=== PATIENT | female | born 1985 | race Caucasian/White ===

== ENCOUNTER → 2017-02-28 | Outpatient (CLI) | payer OTHER ==
[~2017-02-28] MED LIST: LEVO25TA PO; MTR600X PO; OXYC5TAB PO; PANT40TA PO; PRENTAB26 PO
== END | disposition home or self-care (01) ==
LOC: C.LABPVFM 11:20
PROVIDERS: ATTEND Obstetrics & Gynecology
DX: Z32.00 Encounter for pregnancy test, result unknown (principal)

== ENCOUNTER → 2017-03-14 | Outpatient (CLI) | payer OTHER ==
[~2017-03-14] MED LIST changes: +RANI1TAB75 PO
[2017-03-14 14:56] LABS: URINE APPEARANCE CLEAR (CLEAR); URINE BILIRUBIN NEG (NEG); URINE COLOR YELLOW; URINE NITRITE NEG (NEG); URINE PH 5.5 (4.5-7.5); URINE SPECIFIC GRAVITY 1.007 (1.000-1.030); UROBILINOGEN NEG (NEG)
[2017-03-14 15:07] LABS: MANUAL MICROSCOPIC REQUIRED? NO; REVIEW REQ? NO
== END | disposition home or self-care (01) ==
LOC: C.LABSPEC 13:48
PROVIDERS: ATTEND Obstetrics & Gynecology
DX: O09.299 Supervision of pregnancy with other poor reproductive or obstetric history, unspecified trimester (principal)

== ENCOUNTER → 2017-03-26 | Outpatient (CLI) | payer OTHER | END | disposition home or self-care (01) | LOC: C.PAPS 10:08 | PROVIDERS: ATTEND Obstetrics & Gynecology | DX: O10.919 Unspecified pre-existing hypertension complicating pregnancy, unspecified trimester (principal); Z3A.00 Weeks of gestation of pregnancy not specified ==

== ENCOUNTER → 2017-03-26 | Outpatient (CLI) | payer OTHER ==
[2017-03-29 00:57] LABS: CHLAMYDIA TRACH RNA*** NOT DETECTED (NOT DETECTED); GC (NEIS GONORRHOEAE)RNA** NOT DETECTED (NOT DETECTED)
== END | disposition home or self-care (01) ==
LOC: C.LABSPEC 17:29
PROVIDERS: ATTEND Obstetrics & Gynecology
DX: O09.299 Supervision of pregnancy with other poor reproductive or obstetric history, unspecified trimester (principal); Z3A.00 Weeks of gestation of pregnancy not specified

== ENCOUNTER → 2017-03-31 | Outpatient (CLI) | payer OTHER ==
[2017-03-31 08:41] LABS: PATIENT HEIGHT 157.5 cm
[2017-03-31 12:39] LABS: BASO % 0.3 %; BASO ABS # 0.02 K/uL (0-0.2); COMPLETE YES; EOS % 0.6 %; HEMATOCRIT 39.1 % (37-47); IG% 0.4 %; LYMPH % 32.1 %; LYMPH ABS # 2.27 K/uL (1.2-3.4); MEAN CELL VOLUME 87.3 fL (80-100); MEAN CORPUSCULAR HEMOGLOBIN 29.9 pg (25-34); MEAN CORPUSCULAR HGB CONC 34.3 g/dl (32-36); MEAN PLATELET VOLUME 11.5 fL (7.4-10.4); MONO % 5.2 %; NEUT % 61.4 %; PLATELET COUNT 228 K/uL (130-400); RED BLOOD COUNT 4.48 M/uL (4.2-5.4); WHITE BLOOD COUNT 7.07 K/uL (4.8-10.8)
[2017-03-31 13:01] LABS: URINE TOTAL PROTEIN 7.5 mg/dl (0-11.9)
[2017-03-31 13:54] LABS: ALKALINE PHOSPHATASE 46 U/L (45-117); ALT/SGPT 29 U/L (12-78); AST/SGOT 19 U/L (15-37)
[2017-03-31 14:15] LABS: CREATININE 0.55 mg/dl (0.6-1.2)
== END | disposition home or self-care (01) ==
LOC: C.LABPVFM 08:11
PROVIDERS: ATTEND Obstetrics & Gynecology
DX: O10.919 Unspecified pre-existing hypertension complicating pregnancy, unspecified trimester (principal); O09.299 Supervision of pregnancy with other poor reproductive or obstetric history, unspecified trimester; Z3A.00 Weeks of gestation of pregnancy not specified

== ENCOUNTER → 2017-05-14 | Outpatient (CLI) | payer OTHER ==
[~2017-05-14] MED LIST changes: -RANI1TAB75 PO
[2017-05-14 14:54] LABS: GTGD 50 Grams
== END | disposition home or self-care (01) ==
LOC: C.LABPVFM 07:46
PROVIDERS: ATTEND Obstetrics & Gynecology
DX: O09.92 Supervision of high risk pregnancy, unspecified, second trimester (principal); Z3A.00 Weeks of gestation of pregnancy not specified

== ENCOUNTER → 2017-06-19 | Outpatient (CLI) | payer OTHER ==
[2017-06-19 17:50] LABS: BASO % 0.2 %; BASO ABS # 0.02 K/uL (0-0.2); COMPLETE YES; EOS % 1.3 %; HEMATOCRIT 37.4 % (37-47); IG% 0.8 %; LYMPH % 24.4 %; LYMPH ABS # 2.25 K/uL (1.2-3.4); MEAN CELL VOLUME 89.9 fL (80-100); MEAN CORPUSCULAR HEMOGLOBIN 30.3 pg (25-34); MEAN CORPUSCULAR HGB CONC 33.7 g/dl (32-36); MONO % 7.2 %; NEUT % 66.1 %; PLATELET COUNT 237 K/uL (130-400); RED BLOOD COUNT 4.16 M/uL (4.2-5.4); WHITE BLOOD COUNT 9.21 K/uL (4.8-10.8)
[2017-06-19 18:28] LABS: THYROID STIMULATING HORMONE 1.14 uIu/ml (0.300-4.500)
== END | disposition home or self-care (01) ==
LOC: C.LABPVFM 16:13
PROVIDERS: ATTEND Nurse Practitioner Family
DX: F41.9 Anxiety disorder, unspecified (principal); R53.83 Other fatigue

== ENCOUNTER → 2017-08-08 | Outpatient (CLI) | payer OTHER ==
[2017-08-08 13:01] LABS: HEMATOCRIT 37.6 % (37-47)
[2017-08-08 13:23] LABS: GTGD 50 Grams
[2017-08-08 19:11] LABS: URINE APPEARANCE CLEAR (CLEAR); URINE BILIRUBIN NEG (NEG); URINE COLOR YELLOW; URINE NITRITE NEG (NEG); URINE PH 6.5 (4.5-7.5); URINE SPECIFIC GRAVITY 1.016 (1.000-1.030); UROBILINOGEN NEG (NEG)
[2017-08-08 19:22] LABS: MANUAL MICROSCOPIC REQUIRED? NO; REVIEW REQ? NO
== END | disposition home or self-care (01) ==
LOC: C.LABPVFM 08:01
PROVIDERS: ATTEND Obstetrics & Gynecology
DX: O09.93 Supervision of high risk pregnancy, unspecified, third trimester (principal); Z3A.00 Weeks of gestation of pregnancy not specified

== ENCOUNTER → 2017-10-03 | Outpatient (CLI) | payer OTHER | END | disposition home or self-care (01) | LOC: C.LABSPEC 10:53 | PROVIDERS: ATTEND Obstetrics & Gynecology | DX: O09.93 Supervision of high risk pregnancy, unspecified, third trimester (principal) ==

== ENCOUNTER 2017-10-24 05:42 | Inpatient (IN) | payer OTHER ==
[2017-10-23 15:17] VITALS: BMI 33.0
--- NOTE | 2017-10-23 15:37 | PAT Medication Instructions ---
Service Date Oct 23, 2017. Current Home Medication List Ibuprofen (Ibuprofen), 600 MG PO Q4H PRN for Pain, CASTANO, Cramping, or Fever Multivit/Min/Iron/Fol Ac/Pren ( Vitamin), 1 TAB PO QAM Ranitidine HCl (Ranitidine 75), 1 TAB PO DAILY PRN for Heartburn Medication Instructions For Your Scheduled Surgery - Hold the following medications the morning of surgery: Multivit/Min/Iron/Fol Ac/Pren ( Vitamin), 1 TAB PO QAM Ibuprofen (Ibuprofen), 600 MG PO Q4H PRN for Pain, CASTANO, Cramping, or Fever - Take the following medications the morning of surgery with a sip of water OTHERWISE NOTHING TO EAT OR DRINK AFTER MIDNIGHT: Ranitidine HCl (Ranitidine 75), 1 TAB PO DAILY PRN for Heartburn If you have any questions please call us at [phone] or [phone] or [phone]
[2017-10-23 15:46] LABS: BASO % 0.3 %; BASO ABS # 0.03 K/uL (0-0.2); COMPLETE YES; EOS % 0.8 %; HEMATOCRIT 36.5 % (37-47); IG% 1.3 %; LYMPH % 26.6 %; LYMPH ABS # 2.42 K/uL (1.2-3.4); MEAN CELL VOLUME 85.3 fL (80-100); MEAN CORPUSCULAR HEMOGLOBIN 28.5 pg (25-34); MEAN CORPUSCULAR HGB CONC 33.4 g/dl (32-36); MEAN PLATELET VOLUME 11.1 fL (7.4-10.4); MONO % 6.1 %; NEUT % 64.9 %; PLATELET COUNT 235 K/uL (130-400); RED BLOOD COUNT 4.28 M/uL (4.2-5.4); WHITE BLOOD COUNT 9.11 K/uL (4.8-10.8)
--- NOTE | 2017-10-23 18:23 | HISTORY & PHYSICAL EXAMINATION ---
DATE OF ADMISSION: 10/24/2017 PRINCIPAL DIAGNOSES: Intrauterine at 39 weeks, prior section, requesting repeat section and history of chronic hypertension during . PRINCIPAL PROCEDURE: Repeat low transverse cervical section. HISTORY OF PRESENT ILLNESS: The patient is a 32-year-old 3, para 1-0-1-1 white female, EDC of 10/31/2017, who presents for repeat section. First section was done in 2016 because of arrest of descent for delivery of a 7 pound 5 ounce . The patient is requesting repeat section at this time. She understands the risks of procedure and is willing to proceed. The was complicated by history of chronic hypertension, for which she has received no medication during this . PAST MEDICAL HISTORY: Migraine headaches; anxiety and depression, not taking any medications; and hypothyroidism. PAST SURGICAL HISTORY: [place] teeth removed, labiaplasty surgery to release the labial fusion and section in a 2016. ALLERGIES: She has no known drug allergies. MEDICATIONS: vitamins and Zantac as needed for acid reflux, 75 mg dose. OBSTETRICAL AND GYNECOLOGICAL HISTORY: Periods are every 27 days. She has a history of Clomid and Femara prior for infertility and intrauterine inseminations. No history of PID, VD or herpes. Pap smears have been within normal limits. In 2012, she had a spontaneous miscarriage. In 2016, delivery at 38 and 6/7 weeks for arrest of descent by section with delivery of a viable female, 7 pounds 5 ounces. HISTORY: Blood type is O positive. Antibody screen is negative. Rubella is immune. RPR is nonreactive. Urine cultures have been negative. Hepatitis antigen is negative. HIV negative. Chlamydia, GC and cystic fibrosis are all negative. Cell-free DNA was declined. Quad screen was also declined. Glucolas have been within normal limits. Hemoglobin at 28 weeks is 12.5 and hematocrit 37.6. GBS is negative. Nonstress tests have been reactive, done for chronic hypertension. Ultrasounds for growth show estimated weight is within normal limits as is the amniotic fluid. SOCIAL HISTORY: She does not smoke or drink. FAMILY HISTORY: Noncontributory. PHYSICAL EXAMINATION: VITAL SIGNS: Blood pressure is 118/88. GENERAL: She is a well-nourished and well-developed female in no apparent distress. LUNGS: Clear to auscultation. HEART: Regular rate and rhythm. No murmurs or gallops. ABDOMEN: Gravid consistent with a term in size. Estimated fundal height is 37 cm. Estimated weight 7-8 pounds. There is no hepatosplenomegaly or masses palpable. Uterus is nontender. She has a well-healed low transverse skin incision on her abdomen. PELVIC: Deferred. EXTREMITIES: Without calf tenderness or edema. ASSESSMENT: A 32-year-old who presents at 39 weeks gestation for repeat section. She understands the risks of procedure and is willing to proceed. Please see the orders for further directions.
[~2017-10-24] VITALS: Ht 156.2 cm; Wt 84.1 kg
[2017-10-24] VITALS (15 sets, daily range): BP systolic 106–124; BP diastolic 63–78; PULSE 76–105; TEMP 36.4–36.9; O2SAT 91–100; Ht 156.2 cm; Wt 84.1 kg
[~2017-10-24 05:42] MED LIST changes: -LEVO25TA PO; -OXYC5TAB PO; -PANT40TA PO; +RANI1TAB75 PO
[2017-10-24] MEDS ORDERED: LACTATED RINGER'S 1000ML 1,000 ML IV ONE (06:07)
[2017-10-24] MEDS ORDERED: CITRIC ACID/SODIUM CITRATE 15 ML UDC PO STA (06:27)
[2017-10-24] MEDS ORDERED: CEFAZOLIN IV 2,000 MG in SYRINGE 0 ML IV STA (06:27)
[2017-10-24 06:52] LABS: BASO % 0.3 %; BASO ABS # 0.02 K/uL (0-0.2); HEMATOCRIT 35.1 % (37-47); IG% 1.6 %; LYMPH % 26.6 %; LYMPH ABS # 2.11 K/uL (1.2-3.4); MEAN CELL VOLUME 85.8 fL (80-100); MEAN CORPUSCULAR HEMOGLOBIN 27.6 pg (25-34); MONO % 7.1 %; NEUT % 63.4 %; PLATELET COUNT 216 K/uL (130-400); RED BLOOD COUNT 4.09 M/uL (4.2-5.4); WHITE BLOOD COUNT 7.93 K/uL (4.8-10.8)
[2017-10-24 06:55] LABS: COMPLETE YES; MEAN CORPUSCULAR HGB CONC 32.2 g/dl (32-36)
[2017-10-24] MEDS ORDERED: FENTANYL CITRATE INJ 50 MCG/1 ML 2 ML VIAL ONE (07:27)
[2017-10-24] MEDS ORDERED: MORPHINE SULFATE 1MG/1ML 30ML VIAL IV ONE (07:28)
[2017-10-24] MEDS ORDERED: LACTATED RINGER'S 1000ML 1,000 ML IV SCH (07:30)
[2017-10-24] MEDS ORDERED: PHENYLEPHRINE 100MCG/ML 5ML SYR ONE (08:37)
[2017-10-24] MEDS ORDERED: OXYTOCIN INJ 10 UNITS/ML VIAL ONE (08:37)
[2017-10-24] MEDS ORDERED: KETOROLAC TROMETHAMINE 30 MG/ML VIAL ONE (08:37)
[2017-10-24] MEDS ORDERED: ONDANSETRON INJ 2 MG/ML 2 ML VIAL ONE (08:37)
[2017-10-24] MEDS ORDERED: MAGNESIUM HYDROXIDE SUSP 30 ML UDC PO PRN (08:45)
[2017-10-24] MEDS ORDERED: LANOLIN OINT EXT PRN ×2 (08:45)
[2017-10-24] MEDS ORDERED: SENNA 8.6 MG TAB PO PRN (08:45)
--- NOTE | 2017-10-24 08:45 | [facility] Post Operative Brief Note ---
Immediate Operative Summary Operative Date Oct 24, 2017. Pre-Operative Diagnosis Repeat caesarean section x1. Patient desires repeat caesarean section. Post-Operative Diagnosis Same as pre-op. Procedure(s) Performed Live male infant at 0800. Surgeon Dr. Pace [place] Man Surgeon(s) Dr. Rodriguez Estimated Blood Loss 600 mL Findings DELIVERED VIABLE MALE INFANT APGARS 7, 9 WEIGHT 7#9 OZS. NORMAL UTERUS WITH SIGNIFICANT ADHESIONS TO ANTERIOR ABDOMINAL WALL, NORMAL FALLOPIAN TUBES AND OVARIES BILATERALLY. Specimens 1. Placenta 2. Cord Blood Drains WILKINS STRAIGHT TO DRAINAGE, CLEAR AT END OF CASE Anesthesia SPINAL Complication(s) None Disposition Recovery Room / PACU
[2017-10-24] MEDS ORDERED: SODIUM CHLORIDE 0.9% 1000ML 1,000 ML IV PRN (08:57)
[2017-10-24] MEDS ORDERED: LACTATED RINGER'S 1000ML 500 ML IV PRN (08:57)
[2017-10-24] MEDS ORDERED: NALOXONE HCL INJ 1 MG in SODIUM CHLORIDE 0.9% 1000ML 1,000 ML IV PRN (08:57)
[2017-10-24] MEDS ORDERED: NALOXONE HCL INJ 0.08 MG in SYRINGE 1.8 ML IV PRN (08:57)
[2017-10-24] MEDS ORDERED: NALBUPHINE HCL INJ 10 MG/ML AMP IV PRN (09:00)
[2017-10-24] MEDS ORDERED: MoRPHine SULFATE PF 1 MG/ML 10 ML AMP/VIAL EPI PRN (09:00)
[2017-10-24] MEDS ORDERED: NALOXONE HCL 0.4 MG/1 ML VIAL/CARP IV PRN (09:00)
[2017-10-24] MEDS ORDERED: OXYTOCIN INJ 20 UNITS in LACTATED RINGER'S 1000ML 1,000 ML IV SCH (09:00)
[2017-10-24] MEDS ORDERED: DiphenhydrAMINE HCL 50 MG/ML VIAL IV PRN ×2 (09:00)
[2017-10-24] MEDS ORDERED: NO NARCOTICS OR SEDATIVES SCH (09:00)
[2017-10-24] MEDS ORDERED: MEPERIDINE HCL 25 MG/ML CARP IV PRN (09:00)
[2017-10-24] MEDS ORDERED: MoRPHine SULFATE 2 MG/ML CARP IV PRN (09:00)
[2017-10-24] MEDS ORDERED: PROMETHAZINE HCL INJ 6.25 MG in SODIUM CHLORIDE 0.9% 50ML 50 ML IV PRN (09:00)
[2017-10-24] MEDS ORDERED: ONDANSETRON INJ 2 MG/ML 2 ML VIAL IV PRN (09:00)
[2017-10-24] MEDS ORDERED: EpHEDrine SULFATE INJ 50 MG/ML AMP IV PRN (09:00)
--- NOTE | 2017-10-24 09:31 | History & Physical Bridge Note ---
H&P Re-Evaluation Bridge Note: I have examined the patient, reviewed the History & Physical and in the interval since the performance of the History & Physical I have noted the following changes of clinical significance: No changes noted
--- NOTE | 2017-10-24 10:00 | OPERATIVE REPORT ---
DATE OF OPERATION: 10/24/2017 SURGEON: Iqra Pace MD. RIGGING SUPERVISOR: Dr. Candice Rodriguez, PGY1. PREOPERATIVE DIAGNOSIS: Intrauterine at 39 weeks, prior section. POSTOPERATIVE DIAGNOSIS: Same plus delivery of a viable male infant, 7 pounds 9 ounces. PROCEDURE: Repeat low transverse cervical section and lysis of adhesions. ESTIMATED BLOOD LOSS: 600 mL. ANESTHESIA: Subarachnoid block. HISTORY: The patient is a 32-year-old 2, para 1-0-1-1 white female who presents at 39 weeks for repeat section. Prior section was done because of failure to progress. The patient is requesting repeat section with this . She understands the risks of procedure and is willing to proceed. GROSS FINDINGS: Uterus is gravid and consistent with a term in size. Bilateral ovaries and fallopian tubes are grossly normal. There was a dense adhesion between the abdominal wall and the anterior surface of the uterus which was taken down during the course of the section. DESCRIPTION OF THE PROCEDURE: After the patient received adequate subarachnoid block, she was prepped and draped in the usual sterile fashion. A low transverse skin incision was made through her prior scar and carried to the fascia with the same scalpel. The fascial incision was then extended with Cline scissors. The rectus muscles were bluntly divided in the midline and the underlying peritoneum was identified and entered sharply. The bladder was adherent fairly high on the uterus. This was taken down with blunt dissection. The rectus muscles were then noted to be densely adherent to the anterior abdominal wall. A portion of this adhesion was taken down with the Bovie prior to delivering the baby. After the lower uterine segment was adequately visualized, it was entered with the scalpel and extended transversely. Membranes were ruptured for clear fluid. The was delivered from the vertex presentation. Mouth and nasopharynx were suctioned after delivery of the head using moderate fundal pressure and a vacuum assist. The rest of the infant delivered easily. The cord was clamped and cut and the was handed off to Dr. Olivera who was in attendance as technologies division chair. The placenta was expressed and was manually removed intact with a 3-vessel cord. The uterine cavity was explored and found to be free of any placental tissue or membranes. The remaining uterine scar to the abdominal wall was taken down with the Bovie and then the uterus was able to be exteriorized. The uterus was then closed in 2 layers in a running locking imbricating fashion. Bleeding along the adhesion site was controlled with the Bovie and Ligia. Posterior cul-de-sac was irrigated with normal saline. The operative site was examined once more and was noted to have excellent hemostasis. The uterus was gently placed back inside the abdominal cavity. The gutters were explored and found to be free of any placental tissue, clot or fluid. The uterine incision and adhesion sites were examined once more, more Ligia was placed for added hemostasis. The rectus muscles were then brought together on the midline with individual stitches of 0 Monocryl. The fascia was closed in a running fashion with 0 Vicryl. After removing the keloid skin scar with a scalpel, the edges of the skin were freed up with the Bovie. After irrigating the adipose layer and ensuring hemostasis in that layer, the skin was closed in a running subcuticular fashion with some 4-0 Vicryl. Mother and infant were doing well after delivery. I attest to the content of the Intraoperative Record and any orders documented therein. Any exceptions are noted below. MIRI
[2017-10-24] MEDS: SIMETHICONE 80 MG CHEW PO SCH ×4 (11:40→19:39)
[2017-10-24] MEDS: KETOROLAC TROMETHAMINE 30 MG/ML VIAL IV. PRN ×2 (11:41→17:19)
[2017-10-24] MEDS: DOCUSATE SODIUM 100 MG CAP PO SCH (19:39)
--- NOTE | 2017-10-24 20:13 | Anesthesiology Progress Note ---
Anesthesia Post Op Note Date & Time Oct 24, 2017 at 20:13 Vital Signs Pain Intensity: 4.0 Vital Signs Past 12 Hours Date Time Temp Pulse Resp B/P (MAP) Pulse Ox O2 Delivery O2 Flow Rate FiO2 10/24/17 19:00 18 97 10/24/17 18:00 18 97 10/24/17 15:50 18 98 10/24/17 15:40 18 98 10/24/17 15:32 36.8 80 18 115/77 (90) 98 Room Air 10/24/17 15:32 98 Room Air 10/24/17 14:40 16 99 10/24/17 14:10 36.7 97 16 115/75 (88) 91 Room Air 10/24/17 14:10 36.7 97 16 115/75 (88) 97 Room Air 10/24/17 14:10 16 97 10/24/17 13:10 36.9 94 16 124/73 (90) 99 Room Air 10/24/17 13:10 16 99 10/24/17 12:10 36.4 105 18 116/78 (91) 99 Room Air 10/24/17 12:10 18 99 10/24/17 11:40 36.7 84 18 110/76 (87) 100 Room Air 10/24/17 11:10 100 Room Air 10/24/17 11:10 36.7 76 16 111/76 (88) 100 Room Air 10/24/17 11:10 16 100 10/24/17 11:10 100 Room Air Notes Mental Status: alert / awake / arousable, participated in evaluation Pt Amnestic to Procedure: Yes Nausea / Vomiting: adequately controlled Pain: adequately controlled Airway Patency, RR, SpO2: stable & adequate BP & HR: stable & adequate Hydration State: stable & adequate Neuraxial Anesthesia: was administered, sensory block resolved Anesthetic Complications: no major complications apparent
[2017-10-25] VITALS (7 sets, daily range): BP systolic 103–112; BP diastolic 53–73; PULSE 84–97; TEMP 36.5–36.8; O2SAT 96–98
[2017-10-25] MEDS: KETOROLAC TROMETHAMINE 30 MG/ML VIAL IV. PRN (00:28)
[2017-10-25] MEDS ORDERED: ZOLPIDEM TARTRATE 5 MG TAB PO PRN (02:00)
[2017-10-25] MEDS ORDERED: OXYCODONE/ACETAMINOPHEN 5-325 TAB PO PRN (02:00)
[2017-10-25] MEDS ORDERED: KETOROLAC TROMETHAMINE 30 MG/ML VIAL IV. PRN (02:00)
[2017-10-25] MEDS ORDERED: DC INTRASPINAL MORPHINE ONE (02:00)
[2017-10-25] MEDS ORDERED: ONDANSETRON INJ 2 MG/ML 2 ML VIAL IV PRN (02:00)
[2017-10-25] MEDS ORDERED: OXYC-57 PO (03:38)
[2017-10-25] MEDS ORDERED: MTR600X PO (03:38)
[2017-10-25] MEDS: OXYCODONE/ACETAMINOPHEN 5-325 TAB PO PRN ×4 (05:45→23:36)
[2017-10-25] MEDS: IBUPROFEN 600 MG TAB PO PRN ×4 (05:45→23:35)
[2017-10-25 06:36] LABS: BASO % 0.1 %; BASO ABS # 0.01 K/uL (0-0.2); COMPLETE YES; EOS % 0.7 %; HEMATOCRIT 31.7 % (37-47); IG% 0.6 %; LYMPH % 17.2 %; LYMPH ABS # 1.69 K/uL (1.2-3.4); MEAN CELL VOLUME 85.4 fL (80-100); MEAN CORPUSCULAR HEMOGLOBIN 27.8 pg (25-34); MEAN CORPUSCULAR HGB CONC 32.5 g/dl (32-36); MEAN PLATELET VOLUME 10.7 fL (7.4-10.4); MONO % 6.2 %; NEUT % 75.2 %; PLATELET COUNT 206 K/uL (130-400); RED BLOOD COUNT 3.71 M/uL (4.2-5.4); WHITE BLOOD COUNT 9.84 K/uL (4.8-10.8)
--- NOTE | 2017-10-25 07:36 | Progress Note ---
Subjective Oct 25, 2017. Subjective conversation w/ patient, physical exam, chart review, lab review Ambulation: ambulating normally Voiding: no voiding problems Passing Gas: Yes Diet Tolerance: Clear Liquids Lochia: Moderate Feeding Type: Breast Feeding Pain: controlled Review of Systems Respiratory: No shortness of breath Abdomen: No vomiting Female : No dysuria Objective Vital Signs Date Time Temp Pulse Resp B/P (MAP) Pulse Ox O2 Delivery O2 Flow Rate FiO2 10/25/17 03:45 36.8 85 18 103/67 (79) 97 Room Air 10/25/17 02:00 18 98 10/25/17 01:00 18 97 10/25/17 00:30 36.8 84 18 106/71 (83) 98 Room Air 10/25/17 00:30 98 Room Air 10/25/17 00:30 18 98 10/24/17 23:00 16 98 10/24/17 22:00 16 98 10/24/17 20:40 18 98 10/24/17 20:40 36.8 95 18 106/63 (77) 98 Room Air 10/24/17 20:00 18 99 10/24/17 19:00 18 97 10/24/17 18:00 18 97 10/24/17 15:50 18 98 10/24/17 15:40 18 98 10/24/17 15:32 36.8 80 18 115/77 (90) 98 Room Air 10/24/17 15:32 98 Room Air 10/24/17 14:40 16 99 10/24/17 14:10 36.7 97 16 115/75 (88) 91 Room Air 10/24/17 14:10 36.7 97 16 115/75 (88) 97 Room Air 10/24/17 14:10 16 97 10/24/17 13:10 36.9 94 16 124/73 (90) 99 Room Air 10/24/17 13:10 16 99 10/24/17 12:10 36.4 105 18 116/78 (91) 99 Room Air 10/24/17 12:10 18 99 10/24/17 11:40 36.7 84 18 110/76 (87) 100 Room Air 10/24/17 11:10 100 Room Air 10/24/17 11:10 36.7 76 16 111/76 (88) 100 Room Air 10/24/17 11:10 16 100 12/8/17 11:10 100 Room Air Physical Exam General Appearance: WELL-APPEARING, WD/WN, NO APPARENT DISTRESS Respiratory/Chest: lungs clear, normal breath sounds, no respiratory distress Cardiovascular: regular rate, rhythm, no gallop Abdomen: normal bowel sounds, soft Fundus: Firm, Non-Tender, Relation to Umbilicus (1 below U) Incision Description: Clean, Dry & Intact Extremities: non-tender, normal inspection Laboratory Results Last 24 Hours Test 10/25/17 06:24 White Blood Count 9.84 K/uL Red Blood Count 3.71 M/uL Hemoglobin 10.3 g/dL Hematocrit 31.7 % Mean Corpuscular Volume 85.4 fL Mean Corpuscular Hemoglobin 27.8 pg Mean Corpuscular Hemoglobin Concent 32.5 g/dl Platelet Count 206 K/uL Mean Platelet Volume 10.7 fL Neutrophils (%) (Auto) 75.2 % Lymphocytes (%) (Auto) 17.2 % Monocytes (%) (Auto) 6.2 % Eosinophils (%) (Auto) 0.7 % Basophils (%) (Auto) 0.1 % Neutrophils # (Auto) 7.40 K/uL Lymphocytes # (Auto) 1.69 K/uL Monocytes # (Auto) 0.61 K/uL Eosinophils # (Auto) 0.07 K/uL Basophils # (Auto) 0.01 K/uL RDW Standard Deviation 41.1 fL RDW Coefficient of Variation 13.3 % Immature Granulocyte % (Auto) 0.6 % Immature Granulocyte # (Auto) 0.06 K/uL Assessment and Plan Post-Op Day#: 1 Continue Routine Care: Resident Physician Supervision Note: I interviewed and examined the patient. Discussed with Dr. Rodriguez and agree with findings and plan as documented in the note. Any exceptions or clarifications are listed here: [None] Documented By: Iqra Geller In my clinical judgment this beneficiary meets acute admission criteria, established by [facility], that includes being hospitalized through two midnights.Pt is (now2) s/p repeat C/S 10/24 0800 with 600 EBL. O+/GBS-/RI. Hgb 12.2, 11.3, 10.3. Stable. Pt doing well clinically, up and moving around without lightheadedness. Continue routine post care, encourage ambulation, support, control pain with motrin/tylenol. Anticipate DC tomorrow. DEBBIE RODRIGUEZ FMR PGY1. Resident Tracking Resident Involvement: Resident Care Provided Care Provided: OB Delivery
[2017-10-25] MEDS: PRENATAL VITAMIN TAB PO SCH (08:46)
[2017-10-25] MEDS: FERROUS SULFATE 325 MG TAB PO SCH (08:46)
[2017-10-25] MEDS: SIMETHICONE 80 MG CHEW PO SCH ×4 (08:46→20:27)
[2017-10-25] MEDS: DOCUSATE SODIUM 100 MG CAP PO SCH ×2 (08:46→20:27)
[2017-10-25] MEDS ORDERED: BISACODYL 5 MG TABEC PO ONE (22:00)
[2017-10-26] MEDS: IBUPROFEN 600 MG TAB PO PRN ×2 (05:00→11:51)
[2017-10-26] MEDS: OXYCODONE/ACETAMINOPHEN 5-325 TAB PO PRN ×2 (05:01→11:51)
[2017-10-26 07:14] LABS: HEMATOCRIT 30.7 % (37-47)
[2017-10-26 07:49] VITALS: BP 113/76; PULSE 90; TEMP 36.7
[2017-10-26] MEDS: DOCUSATE SODIUM 100 MG CAP PO SCH (08:04)
[2017-10-26] MEDS: PRENATAL VITAMIN TAB PO SCH (08:04)
[2017-10-26] MEDS: FERROUS SULFATE 325 MG TAB PO SCH (08:04)
[2017-10-26] MEDS: SIMETHICONE 80 MG CHEW PO SCH ×2 (08:05→11:49)
--- NOTE | 2017-10-26 09:10 | Progress Note ---
Subjective Oct 26, 2017. Subjective conversation w/ patient, physical exam, lab review Ambulation: ambulating normally Voiding: no voiding problems Passing Gas: Yes Diet Tolerance: Regular Diet Lochia: Moderate Objective Vital Signs Date Time Temp Pulse Resp B/P (MAP) Pulse Ox O2 Delivery O2 Flow Rate FiO2 10/26/17 07:49 36.7 90 18 113/76 (88) Room Air 10/25/17 23:30 36.5 88 20 107/53 (71) 96 Room Air 10/25/17 23:30 98 Room Air 10/25/17 17:00 97 Room Air 10/25/17 17:00 36.6 91 16 108/73 (85) 97 Room Air Physical Exam General Appearance: WELL-APPEARING Respiratory/Chest: lungs clear Abdomen: non tender Fundus: Firm Incision Description: Clean, Dry & Intact Extremities: no calf tenderness Laboratory Results Last 24 Hours Test 10/26/17 06:42 Hemoglobin 10.1 g/dL Hematocrit 30.7 % Assessment and Plan Post-Op Day#: 2 Continue Routine Care: Patient doing well wishes to go home has prescriptions for pain medication already discharge instructions reviewed
--- NOTE | 2017-10-26 09:11 | Discharge Instructions ---
Discharge Instructions Date of Service Oct 26, 2017. Admission Reason for Admission: Previous Section Discharge Discharge Diagnosis / Problem: C/S Discharge Goals Goal(s): Routine recovery after Activity Recommendations Activity Limitations: per Instructions/Follow-up section . Instructions / Follow-Up Instructions / Follow-Up ACTIVITY RECOMMENDATIONS: * Gradual return to full activity over the next 2-3 weeks. * No lifting - nothing heavier than baby over the next 2-3 weeks. * Do not engage in vigorous exercise, sexual activity or sports until cleared by your physician. * Do not drive or operate any motorized equipment until cleared by your physician. * You may shower/bathe daily. MEDICATIONS: For discomfort or pain, you may use Acetaminophen (Tylenol), Ibuprofen (Advil), or Naproxen (Aleve) following the package directions. For constipation you may use Colace following the package directions. BREAST CARE: If you are not breast feeding: * Wear a supportive bra 24 hours a day for one to two weeks. * Avoid stimulating your breasts and nipples as much as possible during the first few weeks after delivery. * When taking a shower, have the warm water hit your back, not breasts. * When your breasts feel full, apply ice packs. Usually three to four times a day helps ease the discomfort. * Take a mild pain medication (Tylenol / Motrin) when you are uncomfortable. If breast feeding: * Use breast milk to lubricate nipples. Lansinoh cream may be used for sore nipples. You do not need to remove cream prior to breast feeding. If using a different brand of cream, check the label for directions regarding removal of cream prior to nursing. * Wear a supportive bra. * If having problems with breasts or breast feeding, call a sales consultant or your health care provider. SPECIAL CARE INSTRUCTIONS: When you are discharged from the hospital, it is important for you to follow the instructions listed below: * During the first week at home, you should be able to care for yourself and your baby. In addition, the usual light household activities are encouraged. * Limit your activities to the way you feel. Do not try to clean the house or move furniture. Be sensible. * If you actively engage in sports and have done so up until the time of your delivery, you may resume these activities as soon as you feel able. This may take up to one month or even longer. Use good judgment. * Continue to take your vitamins for at least six weeks after the of your baby. * Your diet need not be limited unless you were on a special diet before your delivery. Breast-feeding mothers need around 2500 calories per day and at least 64-80 ounces of fluid per day (8 to 10 glasses). * You should eat foods from the four major food groups. Crash diets or fad diets are to be avoided. Eating lean meats, fresh fruits and vegetables, low-fat dairy products, high fiber foods and a regular exercise program, will help you get back to your pre- weight without putting your health at risk. * Constipation is sometimes a problem after delivery. Take a mild laxative as needed. If breast feeding, Milk of Magnesia is acceptable to use. You may use a suppository or Fleets enema. * A daily shower or tub bath is suggested. Wash incision daily with warm soapy water and pat dry. It doesn't need to be covered unless drainage is present. * A bloody vaginal discharge will usually continue until around four weeks . A small amount of bleeding may continue for as long as six weeks. Vaginal discharge changes from the bright red bleeding after delivery to pink then brownish and finally yellowish-pink before becoming white and disappearing. * Bleeding may increase with activity. Your first period may come in 4-8 weeks. If you are breast feeding, your period may be delayed even longer. * [place] (sex) can begin whenever both you and your partner feel comfortable and do not have any form of genital infection. It is recommended that you wait at least six weeks for internal and external healing to occur. If you have questions, please talk to your health care practitioner. A condom should be used to prevent infection and . * Foreplay, gentle intercourse and lubrication is very important the first several times to prevent pain. A water-based lubricant such as K-Y jelly or Astroglide may be used. * If you have RH negative blood and your baby is RH positive, you will receive RHOGAM by injection prior to discharge. The nurse will give you a card to keep with you that has the date and place that you received RHOGAM after delivery. * During your care, you had a Rubella screen done to check for the presence of rubella antibodies in your blood. If your test was negative, you will receive a Rubella vaccine prior to discharge. This vaccine may cause a fever, soreness at the injection site and flu-like symptoms. If these symptoms persist, notify your health care practitioner. is not advised for one month after a Rubella vaccine. * Verbalizes understanding of car seat law as reviewed with patient nursing. * Car Seat hand-out given and reviewed with patient by nursing. * Shaken baby information reviewed with patient by nursing. Call you doctor if: * Heavy bleeding (saturating several pads an hour) or passing clots the size of your fist. * A fever >101 degrees F (38.3 degrees C) on two occasions four hours apart and /or chills. * Unusual pain in the pelvic or vaginal areas. * Call the doctor for any increased redness, drainage or swelling around the incision and any pain unrelieved by prescribed pain medication. * "Baby Blues" lasting longer than two weeks. If you have any questions or concerns, call your health care practitioner at . FOLLOW UP VISIT: * Please call the office at to schedule a 6 week examination. It is important you keep this appointment. It is important for you to make arrangements for either yearly or twice yearly check-ups thereafter. Current Hospital Diet Patient's current hospital diet: Regular Diet Discharge Diet Recommended Diet: Regular OB Diet Procedures Procedures Performed: Live male infant at 0800. Pending Studies Studies pending at discharge: no Medical Emergencies . Who to Call and When: Medical Emergencies: If at any time you feel your situation is an emergency, please call [phone] immediately. . Non-Emergent Contact Non-Emergency issues call your: Returned Goods Receiving Clerk . . "Provider Documentation" section prepared by Agustín Lopez. . VTE Core Measure Inpt VTE Proph given/why not?: Ale Lr, SCD's
[2017-10-26 11:55] VITALS: BP_DIAS 76; PULSE 90; TEMP 36.7
--- NOTE | 2017-10-27 14:16 | DISCHARGE SUMMARY ---
PRINCIPAL DIAGNOSIS: Intrauterine at 39 weeks, prior section, requesting repeat section. PRINCIPAL PROCEDURE: Repeat low transverse cervical section. HISTORY OF PRESENT ILLNESS: The patient is a 32-year-old 3, para 1-0-1-1 white female who had presented for repeat section. Lysis of adhesions was required to enter the peritoneal cavity. Upon entering the abdomen, her abdominal wall was adherent to the fundus of the uterus. After this was taken down, the rest of the section proceeded in the usual fashion. She had an uncomplicated postop course. She remained afebrile throughout her hospital stay. She was eating regular diet, ambulating and voiding without difficulty on her first postop day. On admission, her H&H was 11.3 and hematocrit of 35.1. First postop day, hemoglobin was 10.3, hematocrit 31.7; second postop day, hemoglobin 10.1, hematocrit 30.7. She was sent home with the usual instructions to call for temperature of 101 degrees or higher, heavy vaginal bleeding, burning with urination, increased redness, drainage or pain in her incision or increased calf tenderness or any other concerns. She was given prescriptions for Percocet 1-2 tablets p.o. q. 4 hours p.r.n. pain and Motrin 600 mg p.o. q. 4 hours p.r.n. pain. She is to be seen in the office in 6 weeks for followup visit. MIRI
== END 2017-10-26 11:55 | disposition home or self-care (01) | DRG 766 ==
LOC: C.LD 05:42 → C.OBG 11:14 → EDSTATUS 13:17
PROVIDERS: ADMIT Obstetrics & Gynecology; ATTEND Obstetrics & Gynecology
PROC: 10D00Z1 Extraction of Products of Conception, Low, Open Approach (ICD-10-PCS; principal; 2017-10-24 07:30)
DX: O80 Encounter for full-term uncomplicated delivery (principal); Z3A.39 39 weeks gestation of pregnancy; Z37.0 Single live birth

== ENCOUNTER → 2018-02-24 | Outpatient (CLI) | payer OTHER ==
[~2018-02-24] MED LIST changes: +OXYC-57 PO; -RANI1TAB75 PO
== END | disposition home or self-care (01) ==
LOC: C.PATHSPEC 17:09
PROVIDERS: ATTEND Plastic Surgery
DX: L90.5 Scar conditions and fibrosis of skin (principal); L92.3 Foreign body granuloma of the skin and subcutaneous tissue

== ENCOUNTER 2025-11-07 05:25 | Inpatient (IN) ==
--- NOTE | 2025-10-31 10:05 | Anesthesiology Consultation ---
Date of Service October 31, 2025 Assessment & Plan (1) Encounter for pre-operative examination: Chart Review Chart Review: Acceptable Risk for Surgery and Patient NOT seen in Pre Admission Testing Consults Requested none History Surgery Operation Date: 11/07/25 07:30 Proposed Procedures p Section in LD (delivery of baby through abdominal incision) - Brendan Zheng MD Height/Weight Height: 5 ft 1.7 in Weight: 77.564 kg Allergies Allergy/AdvReac Type Severity Reaction Status Date / Time No Known Allergies Allergy Verified 10/31/25 08:02 Medications Home Medications Medication Instructions Recorded Confirmed Last Taken albuterol sulfate 90 mcg/actuation 2 puff inhalation .COMPLEX PRN 10/31/25 10/31/25 Unknown aerosol inhaler asthma vit no.95-ferrous 1 tab PO DAILY 10/31/25 10/31/25 Unknown fumarate 28 mg-folic acid 800 mcg tablet () Past Medical History Medical History Hx of tension headache History of anxiety Exercise-induced asthma inhaler prn- only with exercise, has not used during History of panic attacks Hx of syncope (2013) had a miscarriage, had a stress test at [facility]- no findings- unable to explain syncopal epsiode - felt possible panic attack Hx: UTI (urinary tract infection) last was approx 10 years ago Hx of gastritis (2020) [place] syndrome Hx of hypoglycemia checks blood sugar, checks every morning and runs 75-120 History of hypothyroidism only during in past- had been on synthroid in past Hx of gastroesophageal reflux (GERD) no longer taking protonix HPV (human papilloma virus) infection History of chicken pox History of COVID-19 05/2021-mild, no current symptoms Multiple nevi hx- had removed Lentigines Dysplastic nevus syndrome Past Family History Family History Grandfather Coronary heart disease Brother Colorectal cancer, Onset Age: 30 Grandfather (Maternal) Myocardial infarction Other No family history of adverse response to anesthesia Denies family history of Ovarian cancer Prostate cancer Breast cancer Past Surgical History Surgical History History of colposcopy History of esophagogastroduodenoscopy (EGD) S/P colonoscopy (06/2021) gets every 5 years due to brother having colon cancer History of cervical biopsy History of wisdom tooth extraction Hx of LASIK (2019) History of gynecologic surgery lysis of vulvar labial adhesions S/P section (2016) x2- 2016 Social History Smoking Status: Never smoker Do You Dip or Chew Tobacco: No Hx Alcohol Use: Yes Alcohol type: beer and wine alcohol intake frequency: a few times a week Alcohol Intake Frequency Comment: only when not - social Hx Substance Use: No substance use type: does not use Testing Laboratory Results Laboratory Tests 04/29/25 08/25/25 13:28 09:45 WBC 6.68 Hgb 12.6 11.8 L Hct 37.7 36.4 L Plt Count 249
[2025-11-07 05:55] LABS: Hematocrit (blood only) 37.0 % (37.0-47.0); Hemoglobin 12.1 g/dL (12.0-16.0); Mean Corpuscular Hemoglobin 28.4 pg (25.0-34.0); Mean Corpuscular Volume 86.9 fL (80.0-100.0); Platelet Count 250 K/uL (130-400); RDW Standard Deviation 41.4 fL (36.4-46.3); Red Blood Count 4.26 M/uL (4.20-5.40); White Blood Count 8.53 K/ul (4.8-10.8)
[2025-11-07] MEDS: LACTATED RINGER'S 1,000 ML IV SCH (06:00)
[2025-11-07] MEDS: ACETAMINOPHEN 500 MG TAB PO SCH (06:32)
[2025-11-07] MEDS ORDERED: PHENYLEPHRINE HCL 25 MG/250 ML NSS IV ONE (06:47)
[2025-11-07] MEDS ORDERED: OXYTOCIN 10 UNITS/ML VIAL ONE (06:47)
[2025-11-07] MEDS ORDERED: DEXAMETHASONE SOD INJ 4 MG/ML VIAL ONE (06:47)
[2025-11-07] MEDS ORDERED: ONDANSETRON INJ 2 MG/ML 2 ML VIAL ONE (06:47)
[2025-11-07] MEDS ORDERED: MoRPHine SULFATE PF 1 MG/ML 10 ML AMP/VIAL ONE (06:48)
[2025-11-07] MEDS ORDERED: ONDANSETRON INJ 2 MG/ML 2 ML VIAL IV PRN ×2 (07:07→08:47)
[2025-11-07] MEDS ORDERED: NALOXONE HCL 1 MG in SODIUM CHLORIDE 0.9% 1,000 ML IV PRN (07:07)
[2025-11-07] MEDS ORDERED: diphenhydrAMINE 50 MG/ML VIAL IV PRN (07:07)
[2025-11-07] MEDS ORDERED: NALBUPHINE HCL INJ 10 MG/ML AMP IV PRN (07:07)
[2025-11-07] MEDS ORDERED: PROMETHAZINE 6.25 MG/50.25 ML BAG IV PRN (07:07)
[2025-11-07] MEDS ORDERED: NALOXONE HCL 0.4 MG/1 ML VIAL/CARP IV PRN (07:07)
[2025-11-07] MEDS ORDERED: HYDROmorphone INJ 0.5 MG/0.5 ML SYR IV PRN (07:07)
[2025-11-07] MEDS ORDERED: LACTATED RINGER'S 500 ML IV PRN (07:07)
[2025-11-07] MEDS ORDERED: MoRPHine SULFATE 2 MG/ML CARP IV PRN (07:07)
[2025-11-07] MEDS ORDERED: DC INTRASPINAL MORPHINE SCH (07:15)
[2025-11-07] MEDS ORDERED: NO NARCOTICS OR SEDATIVES SCH (07:15)
--- NOTE | 2025-11-07 07:28 | History & Physical Report ---
Date of Service November 07, 2025 Assessment & Plan (1) Previous delivery affecting , antepartum: Plan: Tabitha is a 40-year-old G4, P2 currently at 39 weeks 0 days gestational age presents for repeat scheduled section. Consent forms reviewed and signed in clinic on Friday. (2) Elderly multigravida: Admission and Anticipated Discharge Date Admission Date: November 07, 2025 History of Present Illness Primary Care Provider: RAINE Riddle Tabitha is a 40-year-old G4, P2 currently at 39 weeks 0 days gestational age presents for scheduled section for history of prior x 2. Allergies Allergy/AdvReac Type Severity Reaction Status Date / Time No Known Allergies Allergy Verified 11/04/25 15:11 Home Medications Medication Instructions Recorded Confirmed Type albuterol sulfate 90 mcg/actuation 2 puff inhalation .COMPLEX PRN 10/31/25 11/04/25 History aerosol inhaler asthma vit no.95-ferrous 1 tab PO DAILY 10/31/25 11/04/25 History fumarate 28 mg-folic acid 800 mcg tablet () Patient History Medical History Hx of tension headache History of anxiety Exercise-induced asthma inhaler prn- only with exercise, has not used during History of panic attacks Hx of syncope (2013) had a miscarriage, had a stress test at [facility]- no findings- unable to explain syncopal epsiode - felt possible panic attack Hx: UTI (urinary tract infection) last was approx 10 years ago Hx of gastritis (2020) [place] syndrome Hx of hypoglycemia checks blood sugar, checks every morning and runs 75-120 History of hypothyroidism only during in past- had been on synthroid in past Hx of gastroesophageal reflux (GERD) no longer taking protonix HPV (human papilloma virus) infection History of chicken pox History of COVID-19 05/2021-mild, no current symptoms Multiple nevi hx- had removed Lentigines Dysplastic nevus syndrome Surgical History History of colposcopy History of esophagogastroduodenoscopy (EGD) S/P colonoscopy (06/2021) gets every 5 years due to brother having colon cancer History of cervical biopsy History of wisdom tooth extraction Hx of LASIK (2019) History of gynecologic surgery lysis of vulvar labial adhesions S/P section (2017) x2- 2016 Family History Grandfather Coronary heart disease Brother Colorectal cancer, Onset Age: 30 Grandfather (Maternal) Myocardial infarction Other No family history of adverse response to anesthesia Denies family history of Ovarian cancer Prostate cancer Breast cancer Social History Smoking Status: Never smoker Second Hand Exposure: No; Do You Dip or Chew Tobacco: No; Tobacco Cessation Education Requested by Patient: No Hx Alcohol Use: Yes Alcohol type: beer and wine Alcohol Intake Frequency: 2-4 x/Month Hx Substance Use: No Preferred Language: Malay Communication Ability: Effective Visual Impairment: Limited Hearing Ability: Normal Decorator Mannequin Required: No Beliefs That Will Affect Care: None marital status: marital status details: Kaden Trammell (38) [phone] Current Living Situation: Spouse and Family Current Living Situation Comment: Lives with and 2 kids, dogs, cats- children changing litter current occupational status: employed 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 Other Information That Helps Us Care for You: No Feels Safe at Home: Yes Safety Concerns: Feels Safe At This Time Childhood Exposure to Second-Hand Smoke: No Diet: regular caffeine: Yes Dental Care, Regularly: Yes Physical Activity Frequency: 3-4 Times per Week Seatbelt Use: always Sunscreen Use: Yes Assistive Devices: None Physical Exam Genitourinary: OB Exam Monitor Tracing: + external FHT monitor used, + external uterine monitor used, + category I and + normal FHT variability Results & Data Vital Signs (Past 12 Hours) Vital Signs Temp Pulse Resp BP 11/07/25 07:20 36.7 C 18 11/07/25 06:51 72 115/78 Coding Level of Care Code None Diagnoses Previous delivery affecting , antepartum O34.219 Multigravida of advanced maternal age in third trimester O09.523 Trimester: third trimester (2) Elderly multigravida Trimester: third trimester Qualified Code(s): O09.523 - Supervision of hannah kapadia multigravida, third trimester
[2025-11-07] MEDS: CITRIC ACID/SODIUM CITRATE 15 ML UDC PO SCH (07:32)
[2025-11-07] MEDS ORDERED: HYDROCORTISONE ACETATE 25 MG SUPP PR PRN (08:47)
[2025-11-07] MEDS ORDERED: SENNA 8.6 MG TAB PO PRN (08:47)
[2025-11-07] MEDS ORDERED: MAGNESIUM HYDROXIDE SUSP 30 ML UDC PO PRN (08:47)
[2025-11-07] MEDS ORDERED: BENZOCAINE 20% SPRY 85 APPLN/85 GM CAN EXT PRN (08:47)
[2025-11-07] MEDS ORDERED: CALCIUM CARBONATE 500 MG CHEWABLE TAB PO PRN (08:47)
--- NOTE | 2025-11-07 08:54 | Post Operative Brief Note ---
PG Immediate Post Op with CF Date of Surgery November 07, 2025 Pre & Post Diagnosis Operation Date: 11/07/25 07:30 Pre-Op Diagnosis: term pregnacy, prior c section Post-Op Diagnosis: term pregnacy, prior c section I identified the patient and participated in the time-out.: Yes Procedure Operation Date: 11/07/25 07:30 Actual Procedures p Section (Delivery of Baby Through Abdominal Incision) delivered live male at 0805(Bilateral) - Brendan Zheng MD Surgeon Brendan Zheng MD Glass Technologist Dr Khan Estimated Blood Loss 250 Findings Consistent with Post-Op Diagnosis Specimens Specimen Description: placenta cord blood Drains Mirza Catheter
[2025-11-07] MEDS: KETOROLAC 30 MG/ML VIAL IV SCH (09:20)
[2025-11-07] MEDS: OXYTOCIN 20 UNITS/LR 1,002 ML IV SCH (10:02)
--- NOTE | 2025-11-07 10:40 | Operative Report ---
PG Post Operative Report Pre & Post Diagnosis Operation Date: 11/07/25 07:30 Pre-Op Diagnosis: term pregnacy, prior c section Post-Op Diagnosis: term pregnacy, prior c section I identified the patient and participated in the time-out.: Yes Procedure Operation Date: 11/07/25 07:30 Actual Procedures p Section (Delivery of Baby Through Abdominal Incision) delivered live male at 0805(Bilateral) - Brendan Zheng MD Surgeon Brendan Zheng MD Set Up Mechanic Coil Winding Machines Dr Khan Estimated Blood Loss 250 Findings Consistent with Post-Op Diagnosis Significant scar tissue noted in the subcutaneous layers. Significant dense adhesions of anterior abdominal wall to lower uterine segment of uterus. Specimens Placenta Description of Procedure Patient was taken to the operating room after consents were ensured. Upon presentation she was identified. Anesthesia obtained and patient was prepped and draped in the normal sterile fashion. Preprocedure timeout was performed and the case was initiated. A Pfannenstiel incision was made with a knife at the location of the prior sections. This was carried down to underlying fascia with the Bovie and blunt dissection and significant subcutaneous scar tissue noted. Fascia was nicked at the midline with a knife and was extended bluntly bilaterally. The fascia was then grasped on superior aspect with Auburn's x 2 and elevated off the underlying rectus muscles using blunt dissection. A Leny was then used to separate the rectus muscles to allow 1 entry into the abdominal cavity. There was noted to be significant dense adhesions of the anterior abdominal wall to the lower uterine segment of the uterus. The adhesions were taken down with Bovie and blunt dissection. Abdomen was then entered bluntly and placed on stretch to provide adequate room for delivery. A bladder flap was then initiated due to the degree of adhesions. was noted to be in cephalic presentation and a low transverse uterine incision was made with a knife. The uterine cavity was then entered bluntly and placed on stretch to provide adequate room for delivery. was noted to be in cephalic position and the head delivered without difficulty. Shoulders and body quickly followed. was noted be vigorous upon delivery and the cord was doubly clamped and cut. Cord blood obtained and attention turned to deliver the placenta which delivered intact with gentle uterine massage and cord traction. Uterus was exteriorized and several passes made to remove any remaining membranes with a dry lap. Uterus was wrapped in a wet lap and the hysterotomy was reapproximated with 0 Vicryl in continuous running lock stitch. A second imbricating layer was then performed. Few areas where adhesions were previously attached on the uterus were then reapproximated with [id number] stitch with hemostasis noted. The posterior cul-de-sac cleaned of clots and de bris's. Hysterotomy was also noted to be hemostatic. Uterus returned to maternal abdomen and right left paracolic gutters cleaned of clots and debris's and hysterotomy reinspected. Ligia was placed over all raw edges. The muscle, fascia and subcutaneous layers were inspected and noted to be hemostatic. Fascia was reapproximated with 0 Vicryl in continuous running stitch. Subcutaneous layer reapproximated in 2 layers with 2-0 plain. Skin reapproximated 3-0 Vicryl in a subcuticular stitch. Dermabond placed on top. Needle sponge in instrument counts correct at the completion of the case. Both mother and stable in the immediate postdelivery timeframe. No complications noted and blood loss per QBL in chart. I attest to the content of the Intraoperative Record and any orders documented therein. Any exceptions are noted below. OB Procedure charges OB Charges [id number] Procedure Procedure: Procedures Operation Date: 11/07/25 07:30 Actual Procedure Side Surgeon p Section (Delivery of Baby Through Abdominal Incision) delivered live male at 0805 Bilateral Brendan Zheng MD Estimated blood loss (mL): 250
[2025-11-07] MEDS: ACETAMINOPHEN 325 MG TAB PO SCH (15:07)
[2025-11-07] MEDS: SIMETHICONE 80 MG CHEW PO SCH (15:07)
--- NOTE | 2025-11-07 15:15 | Anesthesiology Progress Note ---
Date of Service November 07, 2025 Anesthesia Post Procedure Vital Signs Vital Signs: Temp Pulse Pulse Resp BP BP Pulse Ox 11/07/25 14:00 16 97 11/07/25 13:00 20 94 11/07/25 12:01 18 98 11/07/25 11:56 36.7 C 75 16 109/76 98 11/07/25 11:21 83 93 11/07/25 11:20 76 97 11/07/25 11:15 76 97 11/07/25 11:10 78 97 11/07/25 11:05 73 99 11/07/25 11:02 74 119/75 11/07/25 11:00 36.4 C L 19 11/07/25 11:00 78 99 11/07/25 10:55 78 97 11/07/25 10:50 85 97 11/07/25 10:45 69 97 11/07/25 10:40 76 97 11/07/25 10:35 77 95 11/07/25 10:32 75 126/65 11/07/25 10:31 18 11/07/25 10:30 79 96 11/07/25 10:25 78 97 11/07/25 10:20 90 98 11/07/25 10:15 73 96 11/07/25 10:10 80 97 11/07/25 10:05 72 97 11/07/25 10:01 79 121/74 11/07/25 10:00 36.4 C L 18 11/07/25 10:00 36.4 C L 19 11/07/25 10:00 80 98 11/07/25 09:55 75 98 11/07/25 09:51 78 115/82 11/07/25 09:50 18 11/07/25 09:50 74 98 11/07/25 09:45 78 97 11/07/25 09:41 83 108/79 11/07/25 09:40 20 11/07/25 09:40 77 97 11/07/25 09:35 77 98 11/07/25 09:34 81 117/57 L 11/07/25 09:33 74 180/64 H 11/07/25 09:30 20 11/07/25 09:30 84 98 11/07/25 09:25 75 96 11/07/25 09:22 81 125/75 11/07/25 09:20 19 11/07/25 09:20 75 98 11/07/25 09:15 75 100 11/07/25 09:11 68 100/62 11/07/25 09:10 19 11/07/25 09:10 68 99 11/07/25 09:05 76 100 11/07/25 09:01 75 98/56 L 11/07/25 09:00 36.2 C L 17 11/07/25 09:00 78 100 11/07/25 08:55 77 100 11/07/25 08:51 77 107/59 L 11/07/25 08:50 77 98 11/07/25 07:20 36.7 C 18 11/07/25 06:51 72 115/78 O2 Del Method 11/07/25 14:00 11/07/25 13:00 11/07/25 12:01 11/07/25 11:56 Room Air 11/07/25 11:21 11/07/25 11:20 11/07/25 11:15 11/07/25 11:10 11/07/25 11:05 11/07/25 11:02 11/07/25 11:00 Room Air 11/07/25 11:00 11/07/25 10:55 11/07/25 10:50 11/07/25 10:45 11/07/25 10:40 11/07/25 10:35 11/07/25 10:32 11/07/25 10:31 11/07/25 10:30 11/07/25 10:25 11/07/25 10:20 11/07/25 10:15 11/07/25 10:10 11/07/25 10:05 11/07/25 10:01 11/07/25 10:00 11/07/25 10:00 11/07/25 10:00 11/07/25 09:55 11/07/25 09:51 11/07/25 09:50 11/07/25 09:50 11/07/25 09:45 11/07/25 09:41 11/07/25 09:40 11/07/25 09:40 11/07/25 09:35 11/07/25 09:34 11/07/25 09:33 11/07/25 09:30 11/07/25 09:30 11/07/25 09:25 11/07/25 09:22 11/07/25 09:20 11/07/25 09:20 11/07/25 09:15 11/07/25 09:11 11/07/25 09:10 11/07/25 09:10 11/07/25 09:05 11/07/25 09:01 11/07/25 09:00 Room Air 11/07/25 09:00 11/07/25 08:55 11/07/25 08:51 11/07/25 08:50 11/07/25 07:20 11/07/25 06:51 Pain Intensity Abdomen: Pain Intensity: 2 Transfer of Care Handoff Completed per policy Notes Mental Status: alert / awake / arousable and participated in evaluation Patient Amnestic to Procedure: Yes Nausea / Vomiting: adequately controlled Pain: adequately controlled Airway Patency, RR, SpO2: stable & adequate BP & HR: stable & adequate Hydration State: stable & adequate Anesthetic Complications: no major complications apparent and Pt Satisfied with anesthetic care
[2025-11-07] MEDS: DOCUSATE SODIUM 100 MG CAP PO SCH (20:40)
[2025-11-07] MEDS: NALOXONE HCL 0.08 MG in SYRINGE 1.8 ML IV PRN (21:50)
[2025-11-08] MEDS ORDERED: diphenhydrAMINE Capsule 25 MG CAP PO PRN (01:07)
[2025-11-08] MEDS ORDERED: diphenhydrAMINE 50 MG/ML VIAL IV PRN (01:07)
[2025-11-08] MEDS ORDERED: PROMETHAZINE 12.5 MG/50.5 ML BAG IV PRN (01:07)
[2025-11-08] MEDS ORDERED: HYDROmorphone INJ 0.5 MG/0.5 ML SYR IV PRN (01:07)
[2025-11-08] MEDS ORDERED: Nursing to Pharmacy Communication SCH (02:45)
--- NOTE | 2025-11-08 06:43 | Obstetrical Progress Note ---
Date of Service November 08, 2025 Assessment & Plan (1) Previous delivery affecting , antepartum: (2) Elderly multigravida: Plan 40 yo post- day 1 s/p Fells well today. Vital signs stable Continue post- care Encourage ambulation and Pain controlled with ibuprofen Hgb stableDischarge home tomorrow, follow up with Dr. Zheng in 6 weeks Admission and Anticipated Discharge Date Admission Date: November 07, 2025 Supervising Physician Co-Signing Physician Notes Patient seen with resident and agree with above findings and plan. Need to be straight cathed overnight for reports that she is voiding more normally now. Patient doing well we will continue routine care. Subjective 40 yo post- day 1 s/p Ambulation: ambulating normally Voiding: no voiding problems Passing Gas:: Yes Diet Tolerance:: regular diet Lochia:: Small Feeding Type:: breast feeding Current Pain Level:Slight pain. Resting comfortably this AM in NAD. Denies CASTANO, CP, SOB, N/V/D, LE pain/swelling. Review of Systems Review of Systems: As per HPI. Physical Exam Physical Exam: General: patient resting comfortably, NAD, non-toxic in appearance, AA&O x 4, answers questions appropriately. Skin: warm, dry, intact HEENT: NC/AT, anicteric sclera, conjunctiva without injection, moist mucus membranes. Heart: +S1/S2, regular, no m/r/g Lungs: equal air entry bilaterally, no rales/rhonchi/wheezes Abd: +BS, soft, NT/ND, uterine fundus firm at umbilicus, caesarean incision C/D/I. Ext: warm, no clubbing/cyanosis or edema, Afsaneh's neg. Neuro: nonfocal, patient AA&O x 4, speech intact, no facial droop, moving all extremities on command. Results & Data Vital Signs (Past 12 Hours) Vital Signs Temp Pulse Resp BP Pulse Ox O2 Del Method 11/08/25 03:00 36.7 C 79 16 114/72 96 Room Air 11/08/25 01:00 16 94 11/08/25 00:05 16 95 11/07/25 23:17 16 94 11/07/25 23:15 36.6 C 79 16 100/61 95 Room Air 11/07/25 22:30 16 95 11/07/25 21:03 16 95 11/07/25 20:30 36.7 C 84 17 111/68 94 Room Air 11/07/25 20:05 16 93 11/07/25 19:15 16 95 Resident Activity Tracking Resident Involvement: Resident Care Provided Care Provided: Adult Hospital Medicine (2) Elderly multigravida Trimester: third trimester Qualified Code(s): O09.523 - Supervision of elderly multigravida, third trimester
[2025-11-08 06:45] LABS: Hematocrit (blood only) 30.0 % (37.0-47.0); Hemoglobin 9.8 g/dL (12.0-16.0)
[2025-11-08] MEDS: IBUPROFEN 600 MG TAB PO SCH (08:31)
[2025-11-08] MEDS: FERROUS SULFATE 325 MG TAB PO SCH (08:32)
[2025-11-08] MEDS: PRENATAL VITAMIN 1 TAB PO SCH (08:32)
[2025-11-08] MEDS ORDERED: KETOROLAC 30 MG/ML VIAL IV PRN (08:47)
[2025-11-08] MEDS: DIPHTHER/TETAN/PERTUS Vaccine (Tdap, Adol/Adult) 0.5mL IM ONE (19:11)
[2025-11-08] MEDS: LACTATED RINGER'S 1,000 ML IV SCH ×2 (19:11→19:12)
[2025-11-08] MEDS: MoRPHine SULFATE PF 1 MG/ML 10 ML AMP/VIAL INT SPINAL ONE (19:11)
[2025-11-08] MEDS: SODIUM CHLORIDE 0.9% 1,000 ML IV SCH (19:11)
[2025-11-08 20:52] VITALS: RESP 18
--- NOTE | 2025-11-09 06:57 | Obstetrical Progress Note ---
Date of Service November 09, 2025 Assessment & Plan (1) Previous delivery affecting , antepartum: (2) Elderly multigravida: Plan 40 yo post- day 2 s/p Fells well today. Vital signs stable Continue post- care Encourage ambulation and Pain controlled with ibuprofen Hgb stableDischarge home today, follow up with Dr. Zheng in 6 weeks Admission and Anticipated Discharge Date Admission Date: November 07, 2025 Supervising Physician Co-Signing Physician Notes Resident Physician Supervision Note: I interviewed and examined the patient. Discussed with Dr. Cisneros and agree with findings and plan as documented in the note. Any exceptions or clarifications are listed here: Doing well. Feeling great and desires d/c. Meeting criteria. d/c instructions reviewed. Documented By: Monica Coleman MD, FACOG Subjective 40 yo post- day 2 s/p Ambulation: ambulating normally Voiding: no voiding problems Passing Gas:: Yes Diet Tolerance:: regular diet Lochia:: Small Feeding Type:: breast feeding Current Pain Level:Slight pain. Resting comfortably this AM in NAD. Denies CASTANO, CP, SOB, N/V/D, LE pain/swelling. Review of Systems Review of Systems: As per HPI. Physical Exam Physical Exam: General: patient resting comfortably, NAD, non-toxic in appearance, AA&O x 4, answers questions appropriately. Skin: warm, dry, intact HEENT: NC/AT, anicteric sclera, conjunctiva without injection, moist mucus membranes. Heart: +S1/S2, regular, no m/r/g Lungs: equal air entry bilaterally, no rales/rhonchi/wheezes Abd: +BS, soft, NT/ND, uterine fundus firm at umbilicus, caesarean incision C/D/I. Ext: warm, no clubbing/cyanosis or edema, Afsaneh's neg. Neuro: nonfocal, patient AA&O x 4, speech intact, no facial droop, moving all extremities on command. Results & Data Vital Signs (Past 12 Hours) Vital Signs Temp Pulse Resp BP Pulse Ox O2 Del Method 11/08/25 23:12 36.5 C 89 18 102/69 97 Room Air 11/08/25 19:30 36.5 C 94 H 18 122/67 98 Room Air Resident Activity Tracking Resident Involvement: Resident Care Provided Care Provided: Adult Hospital Medicine (2) Elderly multigravida Trimester: third trimester Qualified Code(s): O09.523 - Supervision of elderly multigravida, third trimester
[2025-11-09] MEDS: IBUPROFEN 600 MG TAB PO PRN (08:25)
[2025-11-09 08:59] VITALS: BP 123/84; PULSE 82; TEMP 97.5; O2SAT 98
[2025-11-09] MEDS ORDERED: ACETAMINOPHEN 325 MG TAB PO PRN (14:47)
== END 2025-11-09 11:00 | disposition home or self-care (01) | DRG 788 ==
LOC: 4S1 05:25 → EDSTATUS 07:30 → 4E2 11:42
DX: Z37.0 Single live birth; O34.211 Maternal care for low transverse scar from previous cesarean delivery; Z3A.39 39 weeks gestation of pregnancy